=== PATIENT | female | born 1955 | race Caucasian/White ===

== ENCOUNTER 2020-07-05 15:31 | Emergency (ER) | payer OTHER ==
[~2020-07-05] VITALS: Ht 162.6 cm; Wt 54.4 kg
[2020-07-05 15:40] VITALS: BP_SYST 131; BP_SYST 135; BP_DIAS 65; BP_DIAS 73
--- NOTE | 2020-07-05 15:41 | NUR ---
65/F BIBA FROM HOME FOR LEFT BACK PAIN X OVER 1 MONTH. ALSO STATES DYSURIA X 3 WEEKS AND RECTAL PAIN AFTER BM TODAY. NO RECTAL BLEEDING. NO N/V/D OR FEVER. VSS. NAD. AMBULATORY STEADY GAIT.
--- NOTE | 2020-07-05 15:52 | NUR ---
DR. GUSTAFSON EXAMINING PT WITH LAYLA TROTTER RN
[2020-07-05] MEDS ORDERED: KETOROLAC 30 MG/ML VIAL IM ONE (16:05)
--- NOTE | 2020-07-05 16:13 | NUR ---
URINE SAMPLE HANDED TO HAND UPPER AND BOTTOM LACER
--- NOTE | 2020-07-05 16:13 | NUR ---
TRIM INSTALLER AT BEDSIDE FOR BLOOD DRAW
[2020-07-05 16:23] LABS: BASOPHILS % (AUTO) 0.9 % (0.0-2.0); EOSINOPHILS # (AUTO) 0.1 K/uL (0-0.4); EOSINOPHILS % (AUTO) 1.1 % (0.0-4.0); HEMATOCRIT 33.6 % (36-48); HEMOGLOBIN 11.3 g/dL (12.0-16.0); LYMPHOCYTES # (AUTO) 1.3 K/uL (2.5-16.5); LYMPHOCYTES % (AUTO) 25.8 % (20.5-51.1); MEAN CORPUSCULAR HEMOGLOBIN 30 pg (27-31); MEAN CORPUSCULAR HGB CONC 34 g/dL (33-37); MEAN CORPUSCULAR VOLUME 89.8 fL (80-94); MONOCYTES # (AUTO) 0.5 K/uL (0.8-1.0); MONOCYTES % (AUTO) 10.1 % (1.7-9.3); NEUTROPHILS # (AUTO) 3.2 K/uL (1.8-7.7); NEUTROPHILS % (AUTO) 62.1 % (42.2-75.2); PLATELET COUNT (AUTO) 230 K/uL (140-450); RED BLOOD CELL COUNT(AUTO) 3.74 MIL/uL (4.20-5.40); RED CELL DISTRIBUTION WIDTH 13.6 % (11.6-13.7); WHITE BLOOD COUNT (AUTO) 5.2 K/uL (4.8-10.8)
[2020-07-05 16:35] LABS: BILIRUBIN,URINE NEGATIVE (NEGATIVE); BLOOD, URINE NEGATIVE (NEGATIVE); COLOR,URINE YELLOW (YELLOW); LEUKOCYTE ESTERASE ,URINE TRACE (NEGATIVE); NITRITE, URINE NEGATIVE (NEGATIVE); PH,URINE 7.5 (5.0-9.0); UGLUCOSE NEGATIVE (NEGATIVE)
[2020-07-05 16:36] LABS: APPEARANCE,URINE HAZY (CLEAR)
[2020-07-05 16:44] LABS: RBC,URINE NONE SEEN /HPF (0-5); WBC,URINE 0-5 /HPF (0-5)
--- NOTE | 2020-07-05 16:48 | NUR ---
DR. GUSTAFSON AT BEDSIDE
[2020-07-05 16:57] LABS: ALBUMIN 3.9 g/dL (3.4-5.0); ANION GAP 11.4 (8-16); CARBON DIOXIDE 29.7 mmol/L (21-32); POTASSIUM 4.1 mmol/L (3.5-5.1); TOTAL BILIRUBIN 0.3 mg/dL (0.0-1.0)
--- NOTE | 2020-07-05 17:14 | NUR ---
DELAY IN CT SCAN DUE TO CLEANING CT MACHINE Addendum: 07/05/20 at 1714 by SOHAIL THERON PEDROZA
--- NOTE | 2020-07-05 17:22 | NUR ---
TO CT SCAN VIA W/C
--- NOTE | 2020-07-05 17:34 | NUR ---
back to bed [address] scan via W/C
--- NOTE | 2020-07-05 18:08 | NUR ---
Patient discharged with v/s stable. Written and verbal after care instructions given and explained. Patient alert, oriented and verbalized understanding of instructions. Ambulatory with steady gait. All questions addressed prior to discharge. ID band removed. Patient advised to follow up with PMD. Rx of Naproysn, Macrobid, Phenazopyridine HCL given. Patient educated on indication of medication including possible reaction and side effects. Opportunity to ask questions provided and answered.
[2020-07-05 18:18] VITALS: BP 118/61
== END 2020-07-05 18:08 | disposition home or self-care (01) ==
LOC: MED 15:31
DX: M54.42 Lumbago with sciatica, left side (principal); N39.0 Urinary tract infection, site not specified; Z98.51 Tubal ligation status
CPT/HCPCS: 36415; 74176; 80053; 81001; 85025; 96372; 99284; J1885

== ENCOUNTER 2020-09-16 03:15 | Emergency (ER) | payer OTHER ==
[~2020-09-16] VITALS: Ht 152.4 cm; Wt 67.1 kg
--- NOTE | 2020-09-16 03:18 | NUR ---
PT TAKEN TO BED 7, PT AMBULATED FROM [place] TO BED WITH STEADY GAIT.
--- NOTE | 2020-09-16 03:29 | NUR ---
THERON MORENO AT BEDSIDE
[2020-09-16 03:30] VITALS: BP 134/70
[2020-09-16] MEDS ORDERED: HYDROcodone/APAP 5/325 MG 1 TAB TAB PO ONE (03:35)
--- NOTE | 2020-09-16 03:40 | NUR ---
65 y/o female presented to the ed c/o a pain in her left elbow that ocurred when she was sleeping and radiated down to her left fingers. pt denies any pain at this time. pt denies any injury or trauma to the area. pt denies fever, n/v, diarrhea. pt denies surgeries to the area. no visible deformities, no swelling noted. no redness or tenderness to the area noted. +CMS intact. +2 pulse to distal upper extremities. pt is not in any acute distress at this time. 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 bed is locked and in lowest position. side rails x1. will continue to monitor PMH: SCIATICA NKA
--- NOTE | 2020-09-16 03:43 | NUR ---
emt at bedside for ekg
--- NOTE | 2020-09-16 03:49 | NUR ---
PER THERON MORENO, HE WOULD LIKE THE EKG TO BE DONE AT A LATER TIME BECAUSE PT IS TOO SHAKEY TO GET ACCURATE READING DONE AT THIS TIME.
--- NOTE | 2020-09-16 04:05 | NUR ---
blood labs collected and walked over to lab
--- NOTE | 2020-09-16 04:12 | NUR ---
EMT AT BEDSIDE FOR EKG
[2020-09-16 04:30] LABS: BASOPHILS % (AUTO) 0.6 % (0.0-2.0); EOSINOPHILS % (AUTO) 0.9 % (0.0-4.0); HEMATOCRIT 36.8 % (36-48); HEMOGLOBIN 12.6 g/dL (12.0-16.0); LYMPHOCYTES % (AUTO) 21.8 % (20.5-51.1); MEAN CORPUSCULAR HEMOGLOBIN 31 pg (27-31); MEAN CORPUSCULAR HGB CONC 34 g/dL (33-37); MEAN CORPUSCULAR VOLUME 90.4 fL (80-94); MONOCYTES # (AUTO) 0.3 K/uL (0.8-1.0); MONOCYTES % (AUTO) 6.5 % (1.7-9.3); NEUTROPHILS # (AUTO) 3.4 K/uL (1.8-7.7); NEUTROPHILS % (AUTO) 70.2 % (42.2-75.2); PLATELET COUNT (AUTO) 230 K/uL (140-450); RED BLOOD CELL COUNT(AUTO) 4.07 MIL/uL (4.20-5.40); RED CELL DISTRIBUTION WIDTH 13.3 % (11.6-13.7); WHITE BLOOD COUNT (AUTO) 4.8 K/uL (4.8-10.8)
--- NOTE | 2020-09-16 04:33 | NUR ---
XRAY AT BEDSIDE
[2020-09-16 04:51] LABS: ALBUMIN 4.1 g/dL (3.4-5.0); ANION GAP 12.5 (8-16); CARBON DIOXIDE 27.5 mmol/L (21-32); TOTAL BILIRUBIN 0.3 mg/dL (0.0-1.0)
--- NOTE | 2020-09-16 05:15 | NUR ---
THERON MORENO AT BEDSIDE FOR RE-EVALUATION
[2020-09-16 06:10] VITALS: BP 111/49
--- NOTE | 2020-09-16 06:10 | NUR ---
Patient discharged with v/s stable. Written and verbal after care instructions given and explained. Patient verbalized understanding. Ambulatory with steady gait. All questions addressed prior to discharge. Advised to follow up with PMD.
== END 2020-09-16 06:10 | disposition home or self-care (01) ==
LOC: MED 03:15
DX: M25.522 Pain in left elbow (principal); I45.2 Bifascicular block
CPT/HCPCS: 36415; 71045; 73090; 80053; 84484; 85025; 93005; 99285